=== PATIENT | male | born 1950 | race Caucasian/White ===

== ENCOUNTER 2016-08-08 09:35 | Day surgery (SDC) | payer OTHER ==
[~2016-08-08] VITALS: Ht 170.2 cm; Wt 70.3 kg
[~2016-08-08 09:35] MED LIST: 0.9% Sodium Chloride 1,000 ML IV PRN; ACET325C PO; CHOL40003 PO; CHOL4PAC PO; LISI1TAB11 PO; Sodium Chloride LOK Flush 10 mL Syringe IV PRN; WARF3TAB7 PO; fentaNYL-PF 50 mCg/mL 2 mL Inj IVPUSH PRN
[2016-08-08 10:01] VITALS: BP 132/73; PULSE 81; RESP 14; O2SAT 98
[2016-08-08 11:10] VITALS: BP 95/63; PULSE 76; RESP 16; O2SAT 96
[2016-08-08 11:20] VITALS: BP 81/58; PULSE 74; RESP 16; O2SAT 98
[2016-08-08 11:26] VITALS: BP 98/68; PULSE 75; RESP 16; O2SAT 98
--- NOTE | 2016-08-08 20:22 | ENDO ---
[address] [address] ENDOSCOPY PROCEDURE PATIENT: MONISHA JEFFERS : 1950 MR#: [id number] ADMIT: 08/08/2016 JOB ID: [id number] PROCEDURE: Colonoscopy with hot snare polypectomy. PRIMARY PROVIDER: Tony Raymond MD INDICATIONS: A 65-year-old male with a family history of colon cancer in his mom, reporting for colon cancer screening. EQUIPMENT: PCF-H180AL. SEDATION: 3 mg Versed, 75 mcg fentanyl. COMPLICATIONS: None identified. BOWEL PREPARATION: Fair, adequate exam. PROCEDURE INFORMATION: After the risks and benefits were explained, written and verbal informed consent was obtained, the patient was brought into the endoscopy suite and placed into the left lateral decubitus position. Sedation was achieved using the above-stated medications with the addition of oxygen via nasal cannula. Digital rectal examination was accomplished. No significant pathology appreciated. The scope was introduced into the rectum and advanced under direct visualization to the cecum as identified by the appendiceal orifice and ileocecal valve. The scope was slowly withdrawn to carefully examine the mucosa for any defects or lesions. Multiple direct views were made through the dentate line for exclusion of pathology. The colon was decompressed. The scope removed from the patient who tolerated the procedure well. FINDINGS: There were two polyps removed from the right and left colon labeled "colon polyps." Both of these were small but we used hot snare. There was a 3rd, small, perhaps 5 mm polyp in the rectosigmoid region that was probably hyperplastic, removed with hot snare. There was some diverticulosis in the left colon. No other significant pathology appreciated. ENDOSCOPIC DIAGNOSES: 1. Colon polyps. 2. Diverticulosis. 3. Minimal hemorrhoids. RECOMMENDATIONS: 1. Await histopathology. 2. If all of these polyps are returned with adenomatous features, repeat colonoscopy in three years. Otherwise, a five-year followup would be very reasonable.
--- NOTE | 2016-08-09 10:20 | PATH ---
SURGICAL PATHOLOGY Attending Physician:Malina Cartagena CASE STATUS: Signed Out PATIENT NAME: MONISHA JEFFERS PID: [id number] : 1950 DATE COLLECTED:08/08/2016 17:49 SPECIMEN: 1: Colon, Biopsy 2: Colon, Biopsy CLINICAL HISTORY: 1). COLON POLYPS 2). RECTAL/SIGMOID POLYP X1 FINAL DIAGNOSIS: 1.COLON POLYPS: TUBULAR ADENOMA INVOLVING SINGLE BIOPSY FRAGMENT. THREE POLYPOID-SHAPED FRAGMENTS OF COLON MUCOSA CONSISTENT WITH MUCOSAL POLYPOID REDUNDANCIES (NEGATIVE FOR DYSPLASIA AND MALIGNANCY). 2.RECTOSIGMOID COLON POLYP: HYPERPLASTIC POLYP. ICD10 CODE D12.6 GROSS DESCRIPTION: The specimen is received in two formalin filled containers labeled with the patient's name. 1). The specimen is sublabeled "colon polyps" and consists of 4 portions of tissue which aggregate to 0.3 x 0.3 x 0.3 CM. The specimen is entirely submitted in cassette 1A. 2). The specimen is sublabeled "rectal/sigmoid polyp" and consists of a 0.5 x 0.4 x 0.4 CM portion of tissue which is entirely submitted in cassette 2A. 08/08/2016 DAC MICRO DESCRIPTION: See diagnosis. ICD-9 CODES: CPT CODES: 1: 20924 2: 77573 Electronically Signed Out Dimitri Linton MD [facility] Pathology [facility] [address], [place] [address] Technical component performed at [facility], [facility] [address], [place], [address]
== END 2016-08-08 23:59 | disposition home or self-care (01) ==
LOC: END 09:35
PROVIDERS: ATTEND Internal Medicine Gastroenterology
DX: Z12.11 Encounter for screening for malignant neoplasm of colon (principal); Z80.0 Family history of malignant neoplasm of digestive organs; I10 Essential (primary) hypertension; Z86.718 Personal history of other venous thrombosis and embolism; Z79.01 Long term (current) use of anticoagulants; K57.30 Diverticulosis of large intestine without perforation or abscess without bleeding; K63.5 Polyp of colon; D12.6 Benign neoplasm of colon, unspecified
CPT/HCPCS: 45385; 88305; 99153; G0500; J7030